=== PATIENT | female | born 1965 | race African-American/Black ===

== ENCOUNTER 2025-04-01 13:49 | Emergency (ER) | payer OTHER ==
[2025-04-01 14:18] VITALS: BP 172/81; PULSE 57; RESP 20; TEMP 98.2; BMI 31.6
== END 2025-04-01 16:56 | disposition home or self-care (01) ==
LOC: FER 13:49
PROC: 0H98XZZ Drainage of Buttock Skin, External Approach (ICD-10-PCS; principal; 2025-04-01)
DX: L02.32 Furuncle of buttock (principal)
CPT/HCPCS: 99283-25